=== PATIENT | male | born 1985 | race Two or more races ===

== ENCOUNTER 2019-11-28 12:28 | Emergency (ER) | payer OTHER ==
[~2019-11-28] VITALS: Ht 177.8 cm; Wt 119.2 kg
--- NOTE | 2019-11-28 12:33 | PHYS DOC ---
Adult General Chief Complaint Chief Complaint: TESTICULAR PAIN OR INJURY HPI HPI Patient is a 34-year-old male who presents for right testicular pain. Onset was this morning when he woke up without any trauma or known inciting event. Elevating right testicle makes better, ambulation and palpation make worse. Pain is dull and focal to right groin region. Timing of symptoms has been constant since onset. Severity of pain is 7/10. Associated symptoms include lower abdominal pain and back pain. Denies any constitutional symptoms, fever, chest pain, shortness of breath, dysuria or penile discharge. Denies any recent travel, sick contacts, or known COVID-19 exposure. Of note patient has a history of cardiomyopathy, he is unsure what type, but admits he has good outpatient follow-up for this and on medications. Also has history of inguinal hernia repair. Patient had vasectomy August 2019. He admits he is sexually active with his , has no history nor concern of STDs, and admits all sexual activities involve condoms given recent vasectomy without clearance to resume sexual activity unprotected. He took Tylenol prior to arrival with mild relief in symptoms but ultimately, continued testicular pain brought him to our ED for further evaluation Review of Systems Review of Systems Fourteen body systems of review of systems have been reviewed. See HPI for pertinent positives and negative responses, other funes all other systems are negative, non-pertinent or non-contributory Physical Exam Physical Exam Constitutional: Well developed, well nourished, no acute distress, non-toxic appearance. HENT: Normocephalic, atraumatic, bilateral external ears normal, oropharynx moist, no oral exudates, nose normal. Eyes: PERRLA, EOMI, conjunctiva normal, no discharge. Neck: Normal range of motion, no tenderness, supple, no stridor. Cardiovascular: Heart rate regular, sinus rhythm, no murmurs rubs or gallops Lungs & Thorax: Bilateral breath sounds clear to auscultation Abdomen: Bowel sounds normal, soft, no tenderness, no masses, no pulsatile masses. Nonsurgical abdomen, no peritoneal signs : Circumcised male without discharge, testicles equal size bilaterally, both descended in appropriate position, negative inguinal hernias bilaterally on finger check, cremaster reflex present, mild relief in patient's pain with elevation of right testicle, no palpable abnormalities of testicle but right testicle is grossly tender on palpation Skin: Warm, dry, no erythema, no rash. Back: No tenderness, no CVA tenderness. Extremities: No tenderness, no cyanosis, no clubbing, ROM intact, no edema. Neurologic: Alert and oriented X 3, grossly normal motor & sensory function, no focal deficits noted. Psychologic: Affect normal, judgement normal, mood normal. EKG EKG [] Radiology/Procedures Radiology/Procedures PROCEDURE: TESTICULAR/SCROTUM Testicular ultrasound dated 11/28/2019. No comparison available. Clinical data indication: Swelling. FINDINGS: Right testicle measures 4.3 x 3.6 x 2.5 cm. Left testicle measures 4.2 x 3.4 x 2.5 cm. No focal testicular mass. Normal color flow and waveforms to both testicles. Epididymides are unremarkable. No significant hydrocele. There are small bilateral varicoceles. IMPRESSION: 1. Normal sonographic appearance of the testicles. 2. Small bilateral varicoceles. Electronically signed by: Ahmet Maldonado MD (11/28/2019 1:15 PM) [facility] PROCEDURE: CT ABDOMEN PELVIS WO CONTRAST CT abdomen pelvis without contrast dated 11/28/2019. No comparison available. CLINICAL INDICATION: Flank pain. TECHNIQUE: Contiguous axial imaging the M pelvis performed without the administration of IV or oral contrast. One or more of the following individualized dose reduction techniques were utilized for this examination: 1. Automated exposure control 2. Adjustment of the mA and/or kV according to patient size 3. Use of iterative reconstruction technique. FINDINGS: Limited images of lung bases are clear. Heart size is within normal limits. No pleural or pericardial effusion. Solid abdominal viscera not well evaluated in the absence of contrast material. No apparent attenuation abnormality of the liver or spleen. Pancreas, adrenal glands and gallbladder are unremarkable. Kidneys are symmetric in size and attenuation. No calcific renal or ureteral stone. No hydronephrosis. No inflammatory changes in the perinephric fat. Unopacified GI tract normal in caliber and contour. No focal bowel wall thickening. The appendix is normal in caliber. No ascites or lymphadenopathy. Abdominal aorta normal in caliber. Small umbilical hernia containing only fat. Images of pelvis show nondistended urinary bladder. Prostate gland normal in size. No free fluid or lymphadenopathy. Bone windows show no acute findings. IMPRESSION: 1. No acute abnormality of abdomen or pelvis. No renal stone or hydronephrosis. Electronically signed by: Ahmet Maldonado MD (11/28/2019 2:46 PM) [facility] [place] Course & Med Decision Making Course & Med Decision Making Hemodynamically stable patient who is overall well-appearing presented to our ER Vital signs stable, comprehensive history and physical exam obtained Testicular ultrasound obtained to rule out torsion, it was grossly negative Other imaging and pertinent labs ordered and reviewed Comprehensive ED visit discussed with patient, discussed this may be an acute presentation of more emergent pathology such as torsion. Nonetheless, given comprehensive work-up, discussed clinical need to treat for epididymitis based on physical exam and history, patient was agreeable. Also discussed need to use follow-up with his urologist in outpatient setting given recent vasectomy August 2019, patient reports being able to get in and evaluated in upcoming 7 days Patient administered ceftriaxone 250 mg IM as a single dose and was given doxycycline 100 mg orally prior to departure. New prescription for doxycycline for a total of 10 days prescribed to ER departure Supportive care practices advised for testicular pain and discomfort. Strict return precautions discussed with good understanding by patient, all questions and concerns addressed prior to ER departure Dragon Disclaimer Dragon Disclaimer This electronic medical record was generated, in whole or in part, using a voice recognition dictation system. Departure Departure: Impression: Primary Impression: Testicular pain, right Additional Impression: Epididymitis, right Disposition: 01 HOME/RESIDENCE PRIOR TO ADM Condition: IMPROVED Referrals: PCP,NO (PCP) Patient Instructions: Epididymitis, Testicular Problems and Self-Exam Additional Instructions: As discussed prior to ER departure, please call your PCP to schedule follow-up in upcoming 1 to 7 days Please take your prescribed antibiotic called doxycycline as instructed to completion Please see attached patient instructions regarding important signs or symptoms that you should seek emergent care for should they arise Scripts Doxycycline Hyclate (DOXYCYCLINE HYCLATE) 100 Mg Capsule 1 CAP PO BID for EPIDIDYMITIS, #13 CAP Prov: DEEPIKA GARCIA DO 11/28/19 Justification of Admission: Justification of Admission: Justification of Admission Dx: N/A Problem Qualifiers DEEPIKA GARCIA DO Nov 28, 2019 12:33
--- NOTE | 2019-11-28 13:18 | RAD ---
Testicular ultrasound dated 11/28/2019. No comparison available. Clinical data indication: Swelling. FINDINGS: Right testicle measures 4.3 x 3.6 x 2.5 cm. Left testicle measures 4.2 x 3.4 x 2.5 cm. No focal testicular mass. Normal color flow and waveforms to both testicles. Epididymides are unremarkable. No significant hydrocele. There are small bilateral varicoceles. IMPRESSION: 1. Normal sonographic appearance of the testicles. 2. Small bilateral varicoceles. Electronically signed by: Ahmet Maldonado MD (11/28/2019 1:15 PM) [facility]
[2019-11-28 13:29] LABS: BACTERIA,URINE 0 /HPF (0-FEW); BILIRUBIN,URINE NEG (NEG); CLARITY,URINE CLEAR; COLOR,URINE YELLOW; GLUCOSE,URINE NEG (NEG); NITRITE,URINE NEG (NEG); RBC,URINE OCC /HPF (0-2); UROBILINOGEN,URINE 0.2 mg/dL (0.2 mg/dL); WBC,URINE OCC /HPF (0-4)
[2019-11-28 13:43] LABS: BASO # 0.1 x10^3/uL (0.0-0.2); BASO % 1 % (0-3); EOS # 0.3 x10^3/uL (0.0-0.7); EOS % 3 % (0-3); HEMATOCRIT 45.1 % (39.0-53.0); HEMOGLOBIN 15.1 g/dL (13.0-17.5); LYMPH # 2.5 x10^3/uL (1.0-4.8); LYMPH % 27 % (24-48); MEAN CORPUSCULAR HEMOGLOBIN 28 pg (25-35); MEAN CORPUSCULAR HGB CONC 33 g/dL (31-37); MEAN CORPUSCULAR VOLUME 84 fL (79-100); MONO # 0.7 x10^3/uL (0.0-1.1); MONO % 8 % (0-9); NEUT # 5.7 x10^3uL (1.8-7.7); NEUT % 62 % (31-73); PLATELET COUNT 258 x10^3/uL (140-400); RED BLOOD COUNT 5.37 x10^6/uL (4.30-5.70); RED CELL DISTRIBUTION WIDTH 13.1 % (11.5-14.5); WHITE BLOOD COUNT 9.2 x10^3/uL (4.0-11.0)
[2019-11-28] MEDS ORDERED: ACETAMINOPHEN 500 MG TABLET PO ONE (13:45)
[2019-11-28 13:46] LABS: CREATININE 1.2 mg/dL (0.7-1.3); GFR 69.3
[2019-11-28 13:55] LABS: ALBUMIN 3.9 g/dL (3.4-5.0); ALBUMIN/GLOBULIN RATIO 1.2 (1.0-1.7); TOTAL BILIRUBIN 0.9 mg/dL (0.2-1.0); TOTAL PROTEIN 7.2 g/dL (6.4-8.2)
--- NOTE | 2019-11-28 14:49 | RAD ---
CT abdomen pelvis without contrast dated 11/28/2019. No comparison available. CLINICAL INDICATION: Flank pain. TECHNIQUE: Contiguous axial imaging the M pelvis performed without the administration of IV or oral contrast. One or more of the following individualized dose reduction techniques were utilized for this examination: 1. Automated exposure control 2. Adjustment of the mA and/or kV according to patient size 3. Use of iterative reconstruction technique. FINDINGS: Limited images of lung bases are clear. Heart size is within normal limits. No pleural or pericardial effusion. Solid abdominal viscera not well evaluated in the absence of contrast material. No apparent attenuation abnormality of the liver or spleen. Pancreas, adrenal glands and gallbladder are unremarkable. Kidneys are symmetric in size and attenuation. No calcific renal or ureteral stone. No hydronephrosis. No inflammatory changes in the perinephric fat. Unopacified GI tract normal in caliber and contour. No focal bowel wall thickening. The appendix is normal in caliber. No ascites or lymphadenopathy. Abdominal aorta normal in caliber. Small umbilical hernia containing only fat. Images of pelvis show nondistended urinary bladder. Prostate gland normal in size. No free fluid or lymphadenopathy. Bone windows show no acute findings. IMPRESSION: 1. No acute abnormality of abdomen or pelvis. No renal stone or hydronephrosis. Electronically signed by: Ahmet Maldonado MD (11/28/2019 2:46 PM) [facility]
[2019-11-28] MEDS ORDERED: DOXY100C2 PO (15:00)
[2019-11-28] MEDS ORDERED: DOXYCYCLINE HYCLATE 100 MG TABLET PO ONE (15:15)
[2019-11-28] MEDS ORDERED: cefTRIAXone IM 250 MG VIAL IM ONE (15:15)
[2019-11-28 15:20] VITALS: BP 165/78
== END 2019-11-28 15:20 | disposition home or self-care (01) ==
LOC: ER 12:28
DX: N45.1 Epididymitis (principal); N50.811 Right testicular pain
CPT/HCPCS: 36415; 74176; 76870; 80053; 81001; 85025; 87491; 87591; 96372; 99285; J0696